=== PATIENT | female | born 1990 | race Caucasian/White ===

== ENCOUNTER 2016-09-15 19:22 | Emergency (ER) | payer OTHER ==
[2016-09-15 20:23] LABS: Hematocrit 40 % (35-47); Hemoglobin 13.5 g/dl (12.0-16.0); Mean Corpuscular HGB Conc 33 g/dl (31-36); Mean Corpuscular Hemoglobin 30 pg (27-31); Mean Corpuscular Volume 89 fL (80-97); Mean Platelet Volume 10 um3 (7.4-10.4); Red Blood Count 4.55 10^6/ul (4.0-5.4); Red Cell Distribution Width 12 % (10.5-15); White Blood Count 8.7 10^3/ul (3.5-10.8)
[2016-09-15 20:39] LABS: Albumin 4.6 g/dL (3.2-5.2); BUN/Creatinine Ratio 17.2 (8-20); Calcium 9.8 mg/dL (8.6-10.3); EGFR African American 164.3 (>60); EGFR Non-African American 127.7 (>60); Globulin 2.9 g/dL (2-4); Potassium 3.3 mmol/L (3.5-5.0); Total Bilirubin 1.2 mg/dL (0.2-1.0); Total Protein 7.5 g/dL (6.4-8.9)
[2016-09-15] MEDS ORDERED: Naproxen TAB* 375 MG PO ONE (21:14)
--- NOTE | 2016-09-15 21:14 | ED ---
Lower Extremity - HPI Summary HPI Summary: 26 female presents with complaints of left lower calf pain that began a month or two ago that worsened over the past week. Patient was seen in urgent care and sent here to rule out DVT. Patient did have tachycardia. States the pain gets better when she rests and worse when she is walking around and moving. Describes it to be a dull ache. Does admit to recent travel +6 hours in the car a week ago. Also admits to bed rest, stating she is lazy and lays down a lot. Denies cigarettes and control use. Patient took one ibuprofen a couple of days ago that did not seem to help her. Has not tried anything else. Denies redness, swelling, and warmth. Denies any open wounds. Hx of pericarditis from an illness back in 2013. She typically has chest pain since then that is intermittent and her norm. Denies any out of ordinary chest pain at this time. Denies SOB, abdominal pain, cough and fever/chills. Patient suffers from anxiety and is very anxious. Denies recent trauma/injury. - History of Current Complaint Chief Complaint: EDGeneral Stated Complaint: LEG PAIN-SENT FROM [facility] Time Seen by Provider: 09/15/16 19:48 Hx Obtained From: Patient Hx Last Menstrual Period: 09/07/16 Onset/Duration: Worse Since Severity Initially: Mild Severity Currently: Moderate Pain Intensity: 5 Pain Scale Used: 0-10 Numeric Timing: Constant Location: Is Discrete @ - left mid calf, posterior Character Of Pain: Dull, Aching, Spasmodic - at times Associated Signs And Symptoms: Positive: Negative Aggravating Factor(s): Standing, Ambulation, Movement Alleviating Factor(s): Rest - Allergies/Home Medications Allergies/Adverse Reactions: Allergies Allergy/AdvReac Type Severity Reaction Status Date / Time No Known Allergies Allergy Verified 09/15/16 18:33 PMH/Surg Hx/FS Hx/Imm Hx Endocrine/Hematology History: Denies: Hx Diabetes Cardiovascular History: Reports: Other Cardiovascular Problems/Disorders - hx pericarditis and intermittent angina since Denies: Hx Congestive Heart Failure, Hx Hypertension Respiratory History: Denies: Hx Asthma History: Denies: Hx Renal Disease - Surgical History Surgery Procedure, Year, and Place: APPENDECTOMY A CHILD - Immunization History Immunizations Up to Date: Yes Infectious Disease History: No Infectious Disease History: Denies: Traveled Outside the [place] in Last 30 Days - Family History Known Family History: Positive: Other - no FHX of DVT or clotting d/o - Social History Alcohol Use: None Substance Use Type: Reports: None Smoking Status (MU): Never Smoked Tobacco Review of Systems Constitutional: Negative Cardiovascular: Negative Respiratory: Negative Gastrointestinal: Negative Positive: Arthralgia, Myalgia - left calf Skin: Negative Neurological: Negative Positive: Anxious All Other Systems Reviewed And Are Negative: Yes Physical Exam Triage Information Reviewed: Yes Vital Signs On Initial Exam: Initial Vitals Temp Pulse Resp BP Pulse Ox 99.4 F 137 18 146/100 100 09/15/16 19:25 09/15/16 19:25 09/15/16 19:25 09/15/16 19:25 09/15/16 19:25 tachycardia noted and elevated BP. monitored and both went down into low 100's throughout stay in ED. Patient is anxious and suffers from anxiety. Compared to previous visits and similar. Vital Signs Reviewed: Yes Appearance: Positive: Well-Appearing, No Pain Distress, Well-Nourished Skin: Positive: Warm, Skin Color Reflects Adequate Perfusion, Dry, Other - no edema, calves measured same circumferance. Negative: Cyanosis @, Diaphoretic, Erythema @ Head/Face: Positive: Normal Head/Face Inspection Eyes: Positive: Normal, Conjunctiva Clear ENT: Positive: Normal ENT inspection, Hearing grossly normal Neck: Positive: Supple, Nontender, No Lymphadenopathy Respiratory/Lung Sounds: Positive: Clear to Auscultation, Breath Sounds Present. Negative: Decreased Breath Sounds, Rales, Stridor, Wheezes, Unable to speak in full sentences Cardiovascular: Positive: Normal, RRR, Pulses are Symmetrical in both Upper and Lower Extremities, Tachycardia. Negative: Leg Edema Left, Leg Edema Right Abdomen Description: Positive: Nontender, No Organomegaly, Soft Bowel Sounds: Positive: Present Musculoskeletal: Positive: Normal, Strength/ROM Intact, Pain @ - on palpation of left mid posterior calf at gastrocnemius muscle, Tamara Sign Left. Negative: Tamara Sign Right, Edema Left, Edema Right Neurological: Positive: Normal, Sensory/Motor Intact, Alert, Oriented to Person Place, Time Psychiatric: Positive: Normal - [place] Coma Scale Coma Scale Total: 15 Diagnostics - Vital Signs Vital Signs Temp Pulse Resp BP Pulse Ox 09/15/16 21:00 114 12 131/87 99 09/15/16 20:33 109 16 128/88 98 09/15/16 20:00 117 20 140/91 100 09/15/16 19:56 133 10 99 09/15/16 19:54 146/90 09/15/16 19:47 99.3 F 132 10 146/90 100 09/15/16 19:25 99.4 F 137 18 146/100 100 - Laboratory Lab Results: Lab Results 09/15/16 09/15/16 09/15/16 Range/Units 20:10 20:10 20:10 WBC 8.7 (3.5-10.8) 10^3/ul RBC 4.55 (4.0-5.4) 10^6/ul Hgb 13.5 (12.0-16.0) g/dl Hct 40 (35-47) % MCV 89 (80-97) fL MCH 30 (27-31) pg MCHC 33 (31-36) g/dl RDW 12 (10.5-15) % Plt Count 223 (150-450) 10^3/ul MPV 10 (7.4-10.4) um3 Neut % (Auto) 77.1 (38-83) % Lymph % (Auto) 18.7 L (25-47) % Bucks % (Auto) 3.6 (1-9) % Eos % (Auto) 0 (0-6) % Baso % (Auto) 0.6 (0-2) % Absolute Neuts (auto) 6.7 (1.5-7.7) 10^3/ul Absolute Lymphs (auto) 1.6 (1.0-4.8) 10^3/ul Absolute Monos (auto) 0.3 (0-0.8) 10^3/ul Absolute Eos (auto) 0 (0-0.6) 10^3/ul Absolute Basos (auto) 0.1 (0-0.2) 10^3/ul Absolute Nucleated RBC 0 10^3/ul Nucleated RBC % 0 D-Dimer, Quantitative < 200 (Less Than 230) ng/mL Sodium 136 (133-145) mmol/L Potassium 3.3 L (3.5-5.0) mmol/L Chloride 103 (101-111) mmol/L Carbon Dioxide 21 L (22-32) mmol/L Anion Gap 12 H (2-11) mmol/L BUN 10 (6-24) mg/dL Creatinine 0.58 (0.51-0.95) mg/dL Est GFR ( Amer) 164.3 (>60) Est GFR (Non-Af Amer) 127.7 (>60) BUN/Creatinine Ratio 17.2 (8-20) Glucose 108 H (70-100) mg/dL Lactic Acid (0.5-2.0) mmol/L Calcium 9.8 (8.6-10.3) mg/dL Total Bilirubin 1.20 H (0.2-1.0) mg/dL AST 16 (13-39) U/L ALT 19 (7-52) U/L Alkaline Phosphatase 52 (34-104) U/L Troponin I 0.00 (<0.04) ng/mL Total Protein 7.5 (6.4-8.9) g/dL Albumin 4.6 (3.2-5.2) g/dL Globulin 2.9 (2-4) g/dL Albumin/Globulin Ratio 1.6 (1-3) /01/24 Range/Units 20:10 WBC (3.5-10.8) 10^3/ul RBC (4.0-5.4) 10^6/ul Hgb (12.0-16.0) g/dl Hct (35-47) % MCV (80-97) fL MCH (27-31) pg MCHC (31-36) g/dl RDW (10.5-15) % Plt Count (150-450) 10^3/ul MPV (7.4-10.4) um3 Neut % (Auto) (38-83) % Lymph % (Auto) (25-47) % Bucks % (Auto) (1-9) % Eos % (Auto) (0-6) % Baso % (Auto) (0-2) % Absolute Neuts (auto) (1.5-7.7) 10^3/ul Absolute Lymphs (auto) (1.0-4.8) 10^3/ul Absolute Monos (auto) (0-0.8) 10^3/ul Absolute Eos (auto) (0-0.6) 10^3/ul Absolute Basos (auto) (0-0.2) 10^3/ul Absolute Nucleated RBC 10^3/ul Nucleated RBC % D-Dimer, Quantitative (Less Than 230) ng/mL Sodium (133-145) mmol/L Potassium (3.5-5.0) mmol/L Chloride (101-111) mmol/L Carbon Dioxide (22-32) mmol/L Anion Gap (2-11) mmol/L BUN (6-24) mg/dL Creatinine (0.51-0.95) mg/dL Est GFR ( Amer) (>60) Est GFR (Non-Af Amer) (>60) BUN/Creatinine Ratio (8-20) Glucose (70-100) mg/dL Lactic Acid 1.1 (0.5-2.0) mmol/L Calcium (8.6-10.3) mg/dL Total Bilirubin (0.2-1.0) mg/dL AST (13-39) U/L ALT (7-52) U/L Alkaline Phosphatase (34-104) U/L Troponin I (<0.04) ng/mL Total Protein (6.4-8.9) g/dL Albumin (3.2-5.2) g/dL Globulin (2-4) g/dL Albumin/Globulin Ratio (1-3) Result Diagrams: 09/15/16 20:10 09/15/16 20:10 Lab Statement: Any lab studies that have been ordered have been reviewed, and results considered in the medical decision making process. - Ultrasound No standard instances Ultrasound Interpretation: No Acute Changes - No evidence for LEFT lower extremity deep venous thrombosis. Ultrasound Interpretation Completed By: Radiologist - EKG EKG Cardiac Rate: NL EKG Rhythm: Sinus Tachycardia ST Segment: Normal Ectopy: None EKG Comparison: No Significant Change Lower Extremity Course/Dx - Course Course Of Treatment: labs, d-dimer, sed rate and CRP obtained all unremarkable and negative. EKG obtained and negative- sinus tachycardia. U/S lower left extremity ordered and negative. due to patients PE findings, HPI and lab results do not suspect DVT or PE at this time. Patient educated on these symptoms and worsening signs and symptoms to watch out for. Given naproxen while in ED. Told to continue naproxen at home, rest and heat. Also given flexeril to take at bedtime, spasms. Once improving start stretching. Follow up with pcp to ensure proper healing. - Diagnoses Differential Diagnosis/HQI/PQRI: Positive: Arthritis, DVT, Sprain, Strain, Tendonitis, Other - PE Provider Diagnoses: Pain of left calf Discharge - Discharge Plan Condition: Stable Disposition: HOME Prescriptions: Cyclobenzaprine TAB* [Flexeril 10 MG TAB*] 10 mg PO BEDTIME #10 tab Patient Education Materials: Muscle Strain (ED) Referrals: Corey Handley MD [Primary Care Provider] - Additional Instructions: Take Ibuprofen (600mg) or Aleve (2 pills) every 6-8 hours with food for the next 3-5 days to help with inflammation and pain. Take prescribed muscle relaxer at bedtime. You may split in half if it makes you too drowsy. Do not drive while taking this medication. Rest your calf. Apply warm compresses multiple times daily 20 minutes on and 20 minutes off. Try stretching your calf after 3 days of rest slowly. If your symptoms persist or do not improve in the next 5-10 days or new symptoms develop such as worsening pain, redness, swelling or difficulty breathing please seek medical attention immediately. Follow up with your primary care provider in the next 7 days.
--- NOTE | 2016-09-15 21:18 | RAD ---
INDICATION: LEFT calf pain for months more intense in the last 2 days. COMPARISON: None. TECHNIQUE: Farrell scale, color Doppler, and spectral analysis of the deep veins of the LEFT lower extremity. Vessel compression, phasicity, and augmentation assessed. REPORT: The LEFT common femoral, great saphenous, profunda femoral, femoral, popliteal, peroneal, and posterior tibial veins are patent. Patency of the RIGHT common femoral vein documented. IMPRESSION: No evidence for LEFT lower extremity deep venous thrombosis.
[2016-09-15] MEDS ORDERED: Cyclobenzaprine TAB* 10 MG PO ONE (21:51)
[2016-09-15 22:13] VITALS: BP 130/91
[2016-09-15 22:39] LABS: C Reactive Protein 1.66 mg/L (< 5.00)
[2016-09-15 23:06] LABS: Erythrocyte Sed Rate 8 mm/Hr (0-14)
== END 2016-09-15 22:10 | disposition home or self-care (01) ==
LOC: ED 19:22
DX: M79.662 Pain in left lower leg (principal)
CPT/HCPCS: 36415; 80053; 83605; 84484; 85025; 85379; 85652; 86140; 93005; 99283; A9270-GY

== ENCOUNTER 2016-11-18 12:30 | Observation (INO) | payer OTHER ==
[2016-11-18] MEDS ORDERED: Aspirin Low Dose CHEW TAB* 81 MG PO ONE (13:55)
[2016-11-18] MEDS ORDERED: NS 0.9% 1000 ML* 2,000 ML IV ONE (13:55)
[2016-11-18 14:21] LABS: Hematocrit 42 % (35-47); Hemoglobin 13.8 g/dl (12.0-16.0); Mean Corpuscular HGB Conc 33 g/dl (31-36); Mean Corpuscular Hemoglobin 30 pg (27-31); Mean Corpuscular Volume 91 fL (80-97); Mean Platelet Volume 10 um3 (7.4-10.4); Red Blood Count 4.63 10^6/ul (4.0-5.4); Red Cell Distribution Width 13 % (10.5-15); White Blood Count 6.8 10^3/ul (3.5-10.8)
[2016-11-18 14:26] LABS: Urine Bilirubin Negative (Negative); Urine Glucose Negative (Negative); Urine Nitrite Negative (Negative)
[2016-11-18 14:40] LABS: ALT 10 U/L (7-52); AST 13 U/L (13-39); Albumin 4.6 g/dL (3.2-5.2); Alkaline Phosphatase 46 U/L (34-104); Anion Gap 10 mmol/L (2-11); BUN/Creatinine Ratio 20.3 (8-20); Blood Urea Nitrogen 12 mg/dL (6-24); C Reactive Protein < 1.00 mg/L (< 5.00); CO2 Carbon Dioxide 22 mmol/L (22-32); Calcium 9.5 mg/dL (8.6-10.3); Chloride 106 mmol/L (101-111); Creatine Kinase 38 U/L (10-223); EGFR Non-African American 125.2 (>60); Globulin 2.7 g/dL (2-4); Glucose 100 mg/dL (70-100); Lipase 16 U/L (11.0-82.0); Potassium 3.4 mmol/L (3.5-5.0); Sodium 138 mmol/L (133-145); Total Protein 7.3 g/dL (6.4-8.9)
[2016-11-18] MEDS ORDERED: Iohexol 350* (CONTRAST) 500 ML MDV IV ONE (14:43)
[2016-11-18 14:54] LABS: TSH (Thyroid Stimulating Horm) 0.76 mcIU/mL (0.34-5.60)
--- NOTE | 2016-11-18 15:04 | RAD ---
HISTORY: Left calf tenderness COMPARISONS: None relevant TECHNIQUE: Multiple transverse and longitudinal ultrasound images were obtained of the left lower extremity from the level of the common femoral vein inferiorly through to the infrapopliteal veins using grayscale, color Doppler, and spectral Doppler imaging with and without compression and with augmentation. Comparison images were obtained of the contralateral common femoral vein. FINDINGS: VEINS: The venous system of the left lower extremity is compressible throughout its course, with normal flow on color Doppler imaging and normal response to augmentation on spectral Doppler imaging. SOFT TISSUES: Unremarkable. OTHER FINDINGS: None. IMPRESSION: NO LEFT LOWER EXTREMITY DEEP VEIN THROMBOSIS
--- NOTE | 2016-11-18 15:56 | RAD ---
HISTORY: Chest pain, shortness of breath, tachycardia COMPARISONS: January 25, 2013 TECHNIQUE: Multiple contiguous axial CT scans of the chest were obtained after the administration of nonionic intravenous contrast, timed to the pulmonary arterial phase of contrast enhancement.. Coronal and sagittal multiplanar reformations are also submitted for review. FINDINGS: NECK AND THYROID: The lower neck and thyroid are unremarkable. CHEST WALL: There is no lower cervical, axillary, or supraclavicular lymphadenopathy by size criteria. HEART AND PERICARDIUM: The heart is unremarkable. AORTA AND PULMONARY VASCULATURE: There is no pulmonary arterial filling defect to suggest pulmonary embolism. There is no linear filling defect within the aorta to suggest aortic dissection. MEDIASTINUM: There is no mediastinal lymphadenopathy by size criteria. HERB: There is no hilar lymphadenopathy by size criteria. AIRWAY AND ESOPHAGUS: The airway is unremarkable, without endobronchial filling defect. The esophagus is grossly normal. LUNG PARENCHYMA: The lungs are clear. PLEURA: No pleural abnormalities are noted. UPPER ABDOMEN: The upper abdomen is unremarkable. BONES AND SOFT TISSUES: No bone or soft tissue abnormalities are noted. OTHER: None. IMPRESSION: NO PULMONARY ARTERIAL FILLING DEFECT TO SUGGEST PULMONARY EMBOLISM
--- NOTE | 2016-11-18 16:30 | RAD ---
Indication: Elevated bilirubin. Real-time sonography of the right upper quadrant was performed. Liver is normal in size. No focal lesions or intrahepatic ductal dilatation is noted. The common duct measures up to 2.2 mm. The gallbladder demonstrates no gallstones, pericholecystic fluid or wall thickening. Pancreas demonstrates no mass or pancreatic duct dilatation. The right kidney measures 11.5 x 3.6 x 4.4 cm without hydronephrosis. Aorta and inferior vena cava cava are unremarkable. IMPRESSION: No evidence of cholelithiasis or biliary duct dilatation is noted.
--- NOTE | 2016-11-18 18:27 | ECHO ---
Patient: ALBERT VELASQUEZ [facility] Rec#: [id number] : 1990 Date: 11/18/2016 Age: 26y Height: 162.56 cm / 64.0 in Weight: 53.07 kg / 117.0 lbs Sex: F BSA: 1.56 Room#: ED 3 Admit Date#: 11/18/2016 Type: Outpatient Referring: Nasim Salcedo MD Reading: Merrill Abreu MD [place] Laborer: Johanne Marinelli,KRISSYCS,RDMS CC: Corey Handley MD Transthoracic Echocardiogram Indication: CP BP: 121/88 HR: 103 Rhythm: Tachycardia Findings History: Pericarditis Technical Comments: The study quality is fair. Completed 1535 Left Ventricle: The left ventricular chamber size is normal. There is no left ventricular hypertrophy. The estimated ejection fraction is 60-65%. The assessment of diastolic function is non-diagnostic. Left Atrium: The left atrial chamber size is normal. Right Ventricle: The right ventricular chamber size and systolic function are within normal limits. Right Atrium: The right atrial cavity size is normal. Aortic Valve: The aortic valve is trileaflet. Systolic excursion of the aortic valve is normal. There is no evidence of aortic regurgitation. There is no evidence of aortic stenosis. Mitral Valve: The mitral valve leaflets appear normal. There is no evidence of mitral regurgitation. There is no evidence of mitral stenosis. Tricuspid Valve: The tricuspid valve leaflets are normal. There is trace tricuspid regurgitation. Pulmonic Valve: The pulmonic valve appears normal. There is a trace pulmonic regurgitation. Pericardium: There is no significant pericardial effusion. Aorta: The ascending aorta is not well visualized. There is no dilatation of the aortic arch. The aortic root is normal in size. Pulmonary Artery: The main pulmonary artery appears normal. Venous: The inferior vena cava appears normal in size. There is a greater than 50% respiratory change in the inferior vena cava dimension. Conclusions Undetermined rhythm; nsr at times but poor baseline limits interpretation. Consider periods of aflutter or afib. The estimated ejection fraction is 60-65%. No significant valve issues. There is no significant pericardial effusion. reviewed with . Measurements Name Value Normal Range RVIDd (AP) 2D 2 cm (0.9 - 2.6) RVDdMajor (2D) 3 cm (2.2 - 4.4) RAd ISD 4CH 3.9 cm (3.4 - 4.9) RA (A4C)W 3.3 cm (2.9 - 4.6) IVSd (2D) 0.7 cm (0.6 - 1) LVPWd (2D) 0.8 cm (0.6 - 1) LVIDd (2D) 3.8 cm (3.6 - 5.4) LVIDs (2D) 2.7 cm - LV FS (2D) 29 % (25 - 45) Aortic Annulus 2 cm (1.4 - 2.6) Ao root diameter (2D) 2.6 cm (2.1 - 3.5) Aortic arch 2.3 cm (1.8 - 3.4) LA dimension (AP) 2D 3.1 cm (2.3 - 3.8) LAd ISD 4CH 4.3 cm (2.9 - 5.3) LA ISD 4CH W 3.5 cm (2.5 - 4.5) Name Value Normal Range LA ESV SP 4CH (A/L) 33.22 ml - LA ESV SP 2CH (A/L) 29.48 ml - LA ESV BP (A/L) 32.75 ml - LA ESV BP (A/L) index 21 ml/m2 - LA ESV SP 4CH (MOD) 31.83 ml - LA ESV SP 2CH (MOD) 26.38 ml - Name Value Normal Range MV E-wave Vmax 1.2 m/sec - MV deceleration time 65 msec - MV A-wave Vmax 1 m/sec - MV E:A ratio 1.2 ratio - LV septal e' Vmax 0.16 m/sec - LV lateral e' Vmax 0.21 m/sec - LV E:e' septal ratio 7.5 ratio - LV E:e' lateral ratio 5.7 ratio - Name Value Normal Range AV Vmax 1.31 m/sec - AV VTI 24.5 cm - AV peak gradient 7 mmHg - AV mean gradient 3.4 mmHg - LVOT Vmax 0.9 m/sec - LVOT VTI 15 cm - LVOT peak gradient 3.4 mmHg - LVOT mean gradient 1.4 mmHg - UTE Vmax 1.5 m/sec - Name Value Normal Range RAP 8 mmHg - IVC diameter 1.7 cm - Name Value Normal Range PV Vmax 1 m/sec - PV peak gradient 4 mmHg -
[2016-11-18] MEDS ORDERED: Potassium Chlor TAB* 20 MEQ TAB.ER PO ONE (19:21)
[2016-11-18] MEDS ORDERED: Ibuprofen TAB* 200 MG PO PRN (19:24)
[2016-11-18] MEDS ORDERED: Ondansetron INJ* 2 MG/ML VIAL IV PRN (19:25)
[2016-11-18] MEDS ORDERED: LORazepam TAB(*) 0.5 MG PO PRN (19:26)
--- NOTE | 2016-11-18 19:44 | ED ---
Thao Walker Edward, scribed for Nasim Salcedo MD on 11/18/16 at 1333 . Palpitations / Dysrhythmia - HPI Summary HPI Summary: 26 y/o female presents to ED c/o palpitations and dysrhythmia characterized as increased HR and skipped beats. The patient states that the palpitations have induced CP on her left side that started five days ago and has gotten progressively worse. The pain was rated at a 8/10 at its worst and characterized as a tightness. The CP is at a 5/10 now. The pain is aggravated by walking around and deep breaths; it is alleviated with rest. Associated sx: SOB, nausea, LLE and LUE pain. Denies any rashes. PMHx pericarditis 2013 and UTIs. Patient is currently being treated for UTI with Keflex. Associated sx of UTI: flank pain, urine with foul odor, diarrhea, and chronic constipation. Patient states her LNMP (2 weeks ago) was not normal - described as intermittent spotting. NKDA. - History of Current Complaint Chief Complaint: EDDysrhythmPalp Time Seen by Provider: 11/18/16 13:32 Hx Obtained From: Patient Onset/Duration: Sudden Onset, Lasting Days - Started 5 days ago Severity Initially: Severe Severity Currently: Moderate Character: Fast, Skipped Beats Aggravating: Exertion - and Deep breaths Alleviating: Rest Associated Signs & Symptoms: Chest Pain, Shortness of Breath, Nausea - Allergy/Home Medications Allergies/Adverse Reactions: Allergies Allergy/AdvReac Type Severity Reaction Status Date / Time No Known Allergies Allergy Verified 11/18/16 12:58 Home Medications: Home Medications Cephalexin CAP* [Keflex 500 CAP*] 500 mg PO QID 11/18/16 [History Confirmed 04/25] Colchicine* [Colcrys*] 0.6 mg PO BID 11/18/16 [History Confirmed 11/18/16] PMH/Surg Hx/FS Hx/Imm Hx Previously Healthy: No Endocrine/Hematology History: Denies: Hx Diabetes Cardiovascular History: Reports: Other Cardiovascular Problems/Disorders - hx pericarditis and intermittent angina since Denies: Hx Congestive Heart Failure, Hx Hypertension Respiratory History: Denies: Hx Asthma History: Reports: Other Problems/Disorders - UTIs Denies: Hx Renal Disease - Surgical History Surgery Procedure, Year, and Place: APPENDECTOMY A CHILD Infectious Disease History: No Infectious Disease History: Denies: Traveled Outside the [place] in Last 30 Days - Family History Known Family History: Positive: Other - no FHX of DVT or clotting d/o - Social History Alcohol Use: None Substance Use Type: Reports: None Smoking Status (MU): Never Smoked Tobacco Review of Systems Constitutional: Negative Eyes: Negative ENT: Negative Positive: Palpitations - Fast, skipped beats, Chest Pain Positive: Shortness Of Breath Positive: Diarrhea, Nausea, Other - Chronic constipation Positive: flank pain, other - Foul smelling odor Positive: Myalgia - LLE and LUE pain Skin: Negative Neurological: Negative Psychological: Normal All Other Systems Reviewed And Are Negative: Yes Physical Exam Triage Information Reviewed: Yes Vital Signs On Initial Exam: Initial Vitals Temp Pulse Resp BP Pulse Ox 98.1 F 146 24 131/95 100 11/18/16 12:35 11/18/16 12:35 11/18/16 12:35 11/18/16 12:35 11/18/16 12:35 Vital Signs Reviewed: Yes Appearance: Positive: Well-Appearing, No Pain Distress, Well-Nourished Skin: Positive: Warm, Skin Color Reflects Adequate Perfusion, Dry, Other - No rash. Head/Face: Positive: Normal Head/Face Inspection Eyes: Positive: Normal, EOMI, CONNER ENT: Positive: Normal ENT inspection Neck: Positive: Supple, Nontender Respiratory/Lung Sounds: Positive: Clear to Auscultation, Breath Sounds Present Cardiovascular: Positive: Tachycardia - Mild Abdomen Description: Positive: Nontender, Soft Bowel Sounds: Positive: Present Musculoskeletal: Positive: Strength/ROM Intact, Other - Mild tenderness in the L calf Neurological: Positive: Normal, Sensory/Motor Intact, Alert, Oriented to Person Place, Time Psychiatric: Positive: Affect/Mood Appropriate - [place] Coma Scale Coma Scale Total: 15 Diagnostics - Vital Signs Vital Signs Temp Pulse Resp BP Pulse Ox 11/18/16 13:00 107 123/81 99 11/18/16 12:57 108 14 123/87 100 11/18/16 12:47 132 98 11/18/16 12:46 152/95 11/18/16 12:35 98.1 F 146 24 131/95 100 - Laboratory Lab Results: Lab Results 11/18/16 11/18/16 11/18/16 Range/Units 13:07 13:07 13:07 WBC 6.8 (3.5-10.8) 10^3/ul RBC 4.63 (4.0-5.4) 10^6/ul Hgb 13.8 (12.0-16.0) g/dl Hct 42 (35-47) % MCV 91 (80-97) fL MCH 30 (27-31) pg MCHC 33 (31-36) g/dl RDW 13 (10.5-15) % Plt Count 240 (150-450) 10^3/ul MPV 10 (7.4-10.4) um3 Neut % (Auto) 79.1 (38-83) % Lymph % (Auto) 15.4 L (25-47) % Barron % (Auto) 4.8 (1-9) % Eos % (Auto) 0.1 (0-6) % Baso % (Auto) 0.6 (0-2) % Absolute Neuts (auto) 5.4 (1.5-7.7) 10^3/ul Absolute Lymphs (auto) 1.0 (1.0-4.8) 10^3/ul Absolute Monos (auto) 0.3 (0-0.8) 10^3/ul Absolute Eos (auto) 0 (0-0.6) 10^3/ul Absolute Basos (auto) 0 (0-0.2) 10^3/ul Absolute Nucleated RBC 0 10^3/ul Nucleated RBC % 0 INR (Anticoag Therapy) 1.10 (0.89-1.11) APTT 35.2 (26.0-36.3) seconds Sodium (133-145) mmol/L Potassium (3.5-5.0) mmol/L Chloride (101-111) mmol/L Carbon Dioxide (22-32) mmol/L Anion Gap (2-11) mmol/L BUN (6-24) mg/dL Creatinine (0.51-0.95) mg/dL Est GFR ( Amer) (>60) Est GFR (Non-Af Amer) (>60) BUN/Creatinine Ratio (8-20) Glucose (70-100) mg/dL Lactic Acid (0.5-2.0) mmol/L Calcium (8.6-10.3) mg/dL Magnesium (1.9-2.7) mg/dL Total Bilirubin (0.2-1.0) mg/dL AST (13-39) U/L ALT (7-52) U/L Alkaline Phosphatase (34-104) U/L Total Creatine Kinase (10-223) U/L CK-MB (CK-2) (0.6-6.3) ng/mL Troponin I (<0.04) ng/mL C-Reactive Protein (< 5.00) mg/L B-Natriuretic Peptide ( - 100) pg/mL Total Protein (6.4-8.9) g/dL Albumin (3.2-5.2) g/dL Globulin (2-4) g/dL Albumin/Globulin Ratio (1-3) Lipase (11.0-82.0) U/L TSH (0.34-5.60) mcIU/mL Beta HCG, Quant mIU/mL Urine Color Yellow Urine Appearance Clear Urine pH 6.0 (5-9) Ur Specific [place] 1.008 L (1.010-1.030) Urine Protein Negative (Negative) Urine Ketones 1+ H (Negative) Urine Blood Negative (Negative) Urine Nitrate Negative (Negative) Urine Bilirubin Negative (Negative) Urine Urobilinogen Negative (Negative) Ur Leukocyte Esterase Negative (Negative) Urine Glucose Negative (Negative) 11/18/16 11/18/16 11/18/16 Range/Units 13:07 13:07 13:07 WBC (3.5-10.8) 10^3/ul RBC (4.0-5.4) 10^6/ul Hgb (12.0-16.0) g/dl Hct (35-47) % MCV (80-97) fL MCH (27-31) pg MCHC (31-36) g/dl RDW (10.5-15) % Plt Count (150-450) 10^3/ul MPV (7.4-10.4) um3 Neut % (Auto) (38-83) % Lymph % (Auto) (25-47) % Barron % (Auto) (1-9) % Eos % (Auto) (0-6) % Baso % (Auto) (0-2) % Absolute Neuts (auto) (1.5-7.7) 10^3/ul Absolute Lymphs (auto) (1.0-4.8) 10^3/ul Absolute Monos (auto) (0-0.8) 10^3/ul Absolute Eos (auto) (0-0.6) 10^3/ul Absolute Basos (auto) (0-0.2) 10^3/ul Absolute Nucleated RBC 10^3/ul Nucleated RBC % INR (Anticoag Therapy) (0.89-1.11) APTT (26.0-36.3) seconds Sodium 138 (133-145) mmol/L Potassium 3.4 L (3.5-5.0) mmol/L Chloride 106 (101-111) mmol/L Carbon Dioxide 22 (22-32) mmol/L Anion Gap 10 (2-11) mmol/L BUN 12 (6-24) mg/dL Creatinine 0.59 (0.51-0.95) mg/dL Est GFR ( Amer) 161.0 (>60) Est GFR (Non-Af Amer) 125.2 (>60) BUN/Creatinine Ratio 20.3 H (8-20) Glucose 100 (70-100) mg/dL Lactic Acid 1.0 (0.5-2.0) mmol/L Calcium 9.5 (8.6-10.3) mg/dL Magnesium 2.0 (1.9-2.7) mg/dL Total Bilirubin 2.10 H (0.2-1.0) mg/dL AST 13 (13-39) U/L ALT 10 (7-52) U/L Alkaline Phosphatase 46 (34-104) U/L Total Creatine Kinase 38 (10-223) U/L CK-MB (CK-2) 0.5 L (0.6-6.3) ng/mL Troponin I 0.00 (<0.04) ng/mL C-Reactive Protein < 1.00 (< 5.00) mg/L B-Natriuretic Peptide 15 ( - 100) pg/mL Total Protein 7.3 (6.4-8.9) g/dL Albumin 4.6 (3.2-5.2) g/dL Globulin 2.7 (2-4) g/dL Albumin/Globulin Ratio 1.7 (1-3) Lipase 16 (11.0-82.0) U/L TSH 0.76 (0.34-5.60) mcIU/mL Beta HCG, Quant < 0.60 mIU/mL Urine Color Urine Appearance Urine pH (5-9) Ur Specific [place] (1.010-1.030) Urine Protein (Negative) Urine Ketones (Negative) Urine Blood (Negative) Urine Nitrate (Negative) Urine Bilirubin (Negative) Urine Urobilinogen (Negative) Ur Leukocyte Esterase (Negative) Urine Glucose (Negative) Result Diagrams: 11/18/16 13:07 11/18/16 13:07 Lab Statement: Any lab studies that have been ordered have been reviewed, and results considered in the medical decision making process. - Radiology [place] Doppler Study Xray Interpretation: No Acute Changes - NO LEFT LOWER EXTREMITY DEEP VEIN THROMBOSIS Radiology Interpretation Completed By: Radiologist - CT CHEST/THORAX CTA CT Interpretation: No Acute Changes - NO PULMONARY ARTERIAL FILLING DEFECT TO SUGGEST PULMONARY EMBOLISM CT Interpretation Completed By: Radiologist - Ultrasound No standard instances Ultrasound Interpretation: No Acute Changes - GALLBLADDER US - No evidence of cholelithiasis or biliary duct dilatation is noted. Ultrasound Interpretation Completed By: Radiologist - EKG 1 EKG Rhythm: Sinus Tachycardia - @ 112 bpm Ectopy: None EKG Interpretation: 12:54 - Minimal ST depression Course/Dx - Course Assessment/Plan: Discussed patient care with Dr. Jem Durán (Hospitalist) @ 18:35. NO CRITICAL CARE TIME. DISCUSSED RESULTS WITH PATIENT/FAMILY AND DR MOODY, CARDIOLOGY. PATIENT AMBULATED IN ED; HR INCREASED TO 149 AND SHE HAD CHEST PAIN. ADMIT HOSPITALIST STABLE. - Diagnoses Provider Diagnoses: Chest pain, Tachycardia Discharge - Discharge Plan Condition: Stable Disposition: ADMITTED TO [facility] Referrals: Corey Handley MD [Primary Care Provider] - The documentation as recorded by the Thao valladares Edward accurately reflects the service I personally performed and the decisions made by me, Nasim Salcedo MD.
[2016-11-18] MEDS: Cephalexin CAP* 500 MG PO SCH (21:36)
[2016-11-18] MEDS: Ibuprofen TAB* 600 MG PO SCH (21:36)
--- NOTE | 2016-11-18 23:58 | HP ---
CC: Dr. Handley; Dr. Hale * ADMISSION HISTORY AND PHYSICAL: DATE OF ADMISSION: 11/18/16 PRIMARY CARE PROVIDER: Dr. Handley. HEALTHCARE PROXY: Her father. CODE STATUS: Full. SOURCE OF INFORMATION: History obtained from interview with the patient and her father, as well as discussion with the ER physician. RELIABILITY: Good. CHIEF COMPLAINT: Chest pain and palpitations. HISTORY OF PRESENT ILLNESS: This is a 26-year-old female with past medical history of pericarditis in 2012, treated at this hospital, recurrent urinary tract infections, has been in her usual state of health until 5 days prior to this presentation on Wednesday evening, started developing palpitations with a sensation that her heart was racing. She was at work and could do nothing to alleviate the symptoms, but lied down when she got home and symptoms improved. Next day, again she felt like her heart was racing except that it was worse, thought about proceeding to the hospital in the hope that it would get better. She admitted that the palpitations were associated with lightheadedness and nausea with decreased appetite and intake over the last several days, although no emesis. The patient notes since that time over the last 4 days, she developed left-sided chest, arm and leg pain, worse with any exertion. Two days prior to presentation, she did try to move less with some relief; however, ultimately palpitations and pain did not improve, and so she presented to her PCP a day prior to presentation. Dr. Handley was not present; however, she saw Dr. Hale in the office, who reportedly performed a chest x-ray, EKG and started her on Keflex for a suspected urinary tract infection and colchicine. The patient took a dose of colchicine developed diarrhea. The patient was additionally prescribed atenolol; however, had not yet taken any doses. The patient reports that previous urinary tract infections have been associated with malodorous urine as well as suprapubic tenderness. She has noticed no dysuria; however, has noticed malodorous urine for many months, not associated with frequency or urgency. She denies any fevers, no subjective chills the night prior to presentation without any sweats. She notes that the pain that she has been experiencing now is dissimilar from the pericarditis she experienced in 2012 and that the pericarditis was a stabbing, pleuritic pain, compared to this pain that she is experiencing now in the left side of her body. PAST MEDICAL HISTORY: Pericarditis in 2013, chronic constipation, moves her bowels every 7 days, recurrent urinary tract infections, history of appendectomy , and anxiety. MEDICATIONS: 1. Keflex 500 mg 4 times a day since yesterday. 2. Colchicine 0.6 mg twice daily. She took one dose. ALLERGIES: No known drug allergies. FAMILY HISTORY: Significant for 2 grandfathers with DC's and the grandmother with an DC as well. SOCIAL HISTORY: No tobacco, alcohol or illicits. History was elicited in front of her father. 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 She notes she is quite active. The most activities she typically outside of work, will be walking around the mall to all the stores after receiving her pay check, which she performed without chest pain or shortness of breath. REVIEW OF SYSTEMS: As per HPI. Otherwise, all other systems are negative. PHYSICAL EXAMINATION GENERAL: Well-appearing female, lying flat in bed, interactive, pleasant, in no apparent distress. VITAL SIGNS: Vitals in the emergency room, blood pressure 131/94, heart rate is 105 when seen by this author, respiratory rate is 16, T-max 98.1, 99% on room air.. HEENT: Oropharynx is clear. She has moist mucous membranes. Sclerae are anicteric. NECK: She has non-elevated JVD. No cervical or supraclavicular lymphadenopathy. LUNGS: Clear to auscultation bilaterally. HEART: She has a tachycardic regular heart rate with no murmurs, rubs, or gallops. Several times, I could not elicit a rub. ABDOMEN: Soft, nontender, nondistended. No suprapubic tenderness. No costovertebral angle tenderness. EXTREMITIES: Warm, well perfused with good capillary refill. No clubbing, cyanosis, or edema. NEUROLOGIC: She is alert and oriented x3. Her cranial nerves are intact. DIAGNOSTIC STUDIES/LAB DATA: Pertinent laboratory data significant for potassium 3.4, total bilirubin 2.1, troponin I of 0.00, CK-MB 0.5, lipase 16, white blood cell count 6.8, CRP is less than 1. Urine with 1+ ketones. EKG is sinus tachycardia, ventricular rate 112, normal axis, intervals preserved , good R-wave progression. There is ST depressions in V3, V4 and minimally depressed in lead 1, T-wave inversion in V2, similar EKG in 2013 on presentation. Pertinent imaging: Transthoracic echocardiogram, impression: Undetermined rhythm, normal sinus rhythm at times with poor baseline limits and interpretation. Consider periods of Aflutter or AFib. Estimated EF of 60% to 65 %. No significant valvular issues. No significant pericardial effusion. CTA, no evidence of pulmonary embolism. ASSESSMENT AND PLAN: This is a 26-year-old female with past medical history of pericarditis in 2013, presenting with episodes of palpitations, associated with chest pain. 1. Chest pain. At this time, I have low suspicion for acute coronary syndrome , given patient's lack of clinical risk factors and first negative troponin. EKG does have subtle evidence of ischemia; however, the EKG is consistent with her presentation of pericarditis in 2013. We will repeat another troponin at this time, it is approximately 6 hours status post presentation and if it remains nominal, I think ischemia is less likely. However, I do note that her pain has been worse with ambulation. For this reason, I will make her n.p.o. after midnight, will monitor EKG, to be rechecked in the morning as well as repeat troponins and her rhythm on telemetry. She received a full dose aspirin in the emergency room. I have not continued aspirin for the morning. Pericarditis is certainly a possibility given her past history. It is unclear if she received colchicine at the time of diagnosis. For now, I will place her on standing Motrin with omeprazole for GI prophylaxis. 2. Urinary tract infection based on history. She has already received some therapy and now urinalysis would be less accurate. Continue Keflex for 7-day course. 3. Tachycardia. There is some concern raised for atrial fibrillation or atrial flutter based on the transthoracic echocardiogram during its acquisition as indicated by Dr. Abreu. Admit to telemetry and monitor. No anticoagulation for this time. 4. Anxiety. The patient is on no medications at home; however, notes that she has had difficulty sleeping secondary to fear of dying from this condition. We will hospitalize. I provided her with 0.5 mg of p.o. Ativan as needed for anxiety. 5. DVT prophylaxis, low risk. Ambulate ad theodore. [id number] #: [id number] YANDEL
[2016-11-19] MEDS: Ibuprofen TAB* 600 MG PO SCH ×2 (02:50→10:51)
[2016-11-19 03:44] VITALS: BP 109/59
[2016-11-19] MEDS ORDERED: Omeprazole CAP* 20 MG PO SCH (06:00)
[2016-11-19] MEDS: Cephalexin CAP* 500 MG PO SCH (10:44)
--- NOTE | 2016-11-19 11:32 | DCNOTE ---
Patient seen this morning. Still feeling palpitations at times, occasionally associated with CP. Had EKG stress this AM, reports no chest pain during the procedure. Episodes of sinus tach on tele but no arrhythmias noted. Noted HR increasing into 120s as she was going down to stress test. Denies any new stressors. On exam, RRR, s1 and s2 present, no m/g/r, abd soft, NTND, BS+ Stress EKG normal aside from reaching target HR early. Trops negative. No significant abnormalities on echo. Will discharge home today with continued ibuprofen for 5 days. Has PCP f/u tomorrow. Will defer to Dr. Hale whether to start the patient on atenolol. Continue ABx for UTI. Can consider outpatient Cardiology consult, will give information for Dr. Carrillo.
--- NOTE | 2016-11-20 07:24 | DS ---
CC: Dr. Handley; Dr. Hale. DISCHARGE SUMMARY: DATE OF ADMISSION: 11/18/16 DATE OF DISCHARGE: 11/19/16 PRIMARY CARE PROVIDER: Dr. Handley. PRIMARY DISCHARGE DIAGNOSES: 1. Palpitations. 2. Sinus tachycardia. 3. Chest pain. DISCHARGE MEDICATION REGIMEN: 1. Keflex 500 mg by mouth 4 times daily. 2. Ibuprofen 600 mg by mouth 4 times daily. STUDIES DONE DURING HOSPITALIZATION: CTA of the chest. Impression: No pulmonary or arterial filli ng defect to suggest pulmonary embolism. Left lower extremity Doppler. Impression: No left lower extremity DVT. Transthoracic echocardiogram. Conclusion: Undetermined rhythm, normal sinus rhythm at times with p oor baseline limits interpretation, consider periods of Aflutter or AFib. Estimated ejection fracti on is 60% to 65%. No significant valve issues. No significant pericardial effusion. Gallbladder ultrasound. Impression: No evidence of cholelithiasis or biliary duct dilatation is no elle. EKG; stress test. The patient reached maximal heart rate sooner than anticipated with no ischemic c hanges. HISTORY OF PRESENT ILLNESS AND HOSPITAL SUMMARY: Please see the full history and physical by Dr. Candy Durán for full details. Briefly, Ms. Urbano is a 26-year- old female with a past medical hi story of pericarditis who presented to the hospital with symptoms of palpitations, chest pain, and o ccasional left arm and left leg pain. The patient had her troponins checked, which remained negativ e. EKG did not show any acute ischemic changes. TSH was within normal limits. She was monitored on telemetry and had some periods of sinus tachycardiac; however, no arrhythmias noted. She did have a mildly elevated bilirubin of 2.1, which prompted a right upper quadrant ultrasound which was marisa l. The patient complained of intermittent palpitations here in the hospital as well, although these wer e not necessarily associated with episodes of tachycardia. She underwent an EKG stress test, which showed that she was able to reach her target heart rate quickly; however, there were no ischemic josue nges noted during the test. As noted above, she also underwent a workup for DVT and PE with no abnor malities noted. It is felt that the patient may have pericarditis as she has had in the past, altho ugh this presentation seems a little different than previously. She was started on ibuprofen schedu le just in case her outpatient antibiotics were continued and she was diagnosed with UTI at Dr. Cruz's office. I do not feel like there is any benefit of keeping her in the hospital for further chuy ting. I would like to see how she does over the next few days on NSAIDs, and she will follow up barney Hale in the office tomorrow. Consideration could be given for possible cardiology consultat ion if this persists. TIME SPENT: Total time spent on this discharge 35 minutes. [facility] please see the full medical record for further details. [id number] #: [id number]
== END 2016-11-19 12:45 | disposition home or self-care (01) ==
LOC: ED 12:30 → MEDTELE 19:25
PROVIDERS: ADMIT Internal Medicine; ATTEND Hospitalist
DX: R00.2 Palpitations (principal); N39.0 Urinary tract infection, site not specified; R00.0 Tachycardia, unspecified; R07.9 Chest pain, unspecified; F41.9 Anxiety disorder, unspecified; R06.02 Shortness of breath
CPT/HCPCS: 36415; 71275; 76705; 80053; 81003; 82550; 82553; 83605; 83690; 83735; 83880; 84443; 84484; 84702; 85025; 85610; 85730; 86140; 93005; 93017; 93306; 96360; 96361; 99283; A9270-GY; G0378; Q9967

== ENCOUNTER 2018-02-04 07:42 | Emergency (ER) | payer OTHER ==
--- NOTE | 2018-02-04 08:24 | UC ---
Complaint Female HPI - HPI Summary HPI Summary: COMPLAINS OF ONE WEEK OF DYSURIA, URINARY FREQUENCY AND URGENCY. ONSET OF LEFT FLANK PAIN YESTERDAY. DENIES FEVER. HAS SOME NAUSEA BUT THIS IS BASELINE FOR HER DUE TO HISTORY OF GASTROPARESIS. - History Of Current Complaint Chief Complaint: UCGU Stated Complaint: URINARY COMPLAINT Time Seen by Provider: 02/04/18 07:57 Hx Obtained From: Patient Hx Last Menstrual Period: 01/28/18 Onset/Duration: Gradual Onset, Lasting Days, Still Present Timing: Constant Severity Initially: Moderate Severity Currently: Moderate Pain Intensity: 6 Pain Scale Used: 0-10 Numeric Character: Burning Aggravating Factor(s): Urination Alleviating Factor(s): Nothing Associated Signs And Symptoms: Positive: Back Pain, Nausea. Negative: Fever, Vomiting(# Of Episodes =) - Allergies/Home Medications Allergies/Adverse Reactions: Allergies Allergy/AdvReac Type Severity Reaction Status Date / Time No Known Allergies Allergy Verified 11/18/16 12:58 Home Medications: Home Medications Acetaminophen TAB* [Tylenol TAB*] 650 mg PO Q4H PRN 02/04/18 [History Confirmed 02/04/18] PMH/Surg Hx/FS Hx/Imm Hx Other GI/ History: GASTROPARESIS - Surgical History Surgical History: Yes Surgery Procedure, Year, and Place: APPENDECTOMY A CHILD - Family History Known Family History: Positive: Other - no FHX of DVT or clotting d/o Negative: Hypertension Family History: KIDNEY STONES - Social History Alcohol Use: None Substance Use Type: None Smoking Status (MU): Never Smoked Tobacco - Immunization History Most Recent Influenza Vaccination: never Most Recent Tetanus Shot: 2009 Review of Systems Constitutional: Negative Respiratory: Negative Cardiovascular: Negative Gastrointestinal: Abdominal Pain, Nausea Genitourinary: Dysuria, Frequency, Urgency All Other Systems Reviewed And Are Negative: Yes Physical Exam Triage Information Reviewed: Yes Appearance: Well-Appearing, No Pain Distress, Well-Nourished Vital Signs: Initial Vital Signs Temp 98.3 F 02/04/18 07:47 Pulse 113 02/04/18 07:47 Resp 16 02/04/18 07:47 BP 135/86 02/04/18 07:47 Pulse Ox 95 02/04/18 07:47 Laboratory Tests 02/04/18 02/04/18 08:05 08:09 POC Urine Color [place] POC Urine Clarity Turbid POC Urine pH 6.0 POC Ur Specif [place] >= 1.030 POC Urine Protein 3+ A POC Ur Glucose (UA) Negative POC Urine Ketones Negative POC Urine Blood 3+ A POC Urine Nitrite Positive A POC Urine Bilirubin Negative POC Urine Urobilinogen 1.0 POC U Leukocyte Esteras 2+ A POC Ur Test Negative Vital Signs Reviewed: Yes Eyes: Positive: Conjunctiva Clear ENT: Positive: Hearing grossly normal Neck: Positive: Supple Respiratory: Positive: No respiratory distress, No accessory muscle use Cardiovascular: Positive: Tachycardia Abdomen Description: Positive: Soft, CVA Tenderness (L), Other: - SUPRAPUBIC TENDERNESS. Negative: CVA Tenderness (R), Distended, Guarding Musculoskeletal: Positive: No Edema Neurological: Positive: Alert Psychological: Positive: Age Appropriate Behavior Skin: Negative: rashes Diagnostics - Radiology CT ABD/PELVIS W/O CONTRAST Xray Interpretation: Positive (See Comments) - Mild fullness of left renal collecting system with mild dilatation of the left ureter. Diffuse wall thickening of the urinary bladder with a small amount of free fluid noted. Possibility of urinary tract infection should BE considered. No obvious obstructing calculi is noted. Radiology Interpretation Completed By: Radiologist Complaint Female Dx - Differential Dx/Diagnosis Provider Diagnoses: UTI Discharge - Sign-Out/Discharge Documenting (check all that apply): Patient Departure All imaging exams completed and their final reports reviewed: Yes - Discharge Plan Condition: Stable Disposition: HOME Prescriptions: Phenazopyridine TAB* [Pyridium TAB*] 200 mg PO TID #6 tab Sulfamethox/Trimethoprim SUSP* [Bactrim Susp*] 20 ml PO BID #200 ml Patient Education Materials: Urinary Tract Infection in Women (ED) Referrals: Lubna Hale MD [Primary Care Provider] - If Needed Additional Instructions: CT SCAN TODAY DID NOT SHOW ANY KIDNEY STONES BUT DID SHOW SOME INFLAMMATION IN YOUR LEFT RENAL SYSTEM CONSISTENT WITH URINARY TRACT INFECTION. TAKE THE ANTIBIOTIC FOR THE FULL 5 DAYS AND BE SURE TO STAY WELL-HYDRATED. WE WILL SEND YOUR URINE FOR CULTURE AND CALL YOU IF YOUR MEDICATION NEEDS TO BE CHANGED. SEEK FOLLOW-UP IF YOU'RE NOT IMPROVING EXPECTED. - Billing Disposition and Condition Condition: STABLE Disposition: Home
--- NOTE | 2018-02-04 09:07 | RAD ---
Indication: Left flank pain. CT of the abdomen and pelvis was performed without oral or IV contrast administration. Coronal and sagittal reconstructed images were obtained. Lung bases demonstrate no pleural fluid, nodules or masses. Heart is of normal size without evidence of pericardial effusion. Liver is normal in size. No focal lesions or intrahepatic duct dilatation is noted. The spleen is normal in size. The pancreas demonstrates no mass or pancreatic duct dilatation. The gallbladder demonstrates no calcified gallstones, pericholecystic fluid or wall thickening. The pancreas demonstrates no mass or pancreatic ductal dictation. No adrenal masses are noted. The kidneys demonstrate fullness of left renal collecting system. No obvious calculi is noted although mild dilatation of the left ureter is noted. There is diffuse wall thickening of the urinary bladder. Aorta and inferior vena cava are unremarkable. No retroperitoneal lymphadenopathy is noted. The urinary bladder is partially collapsed with wall thickening. Urinary tract infection cannot be excluded. IMPRESSION: Mild fullness of left renal collecting system with mild dilatation of the left ureter. Diffuse wall thickening of the urinary bladder with a small amount of free fluid noted. Possibility of urinary tract infection should BE considered. No obvious obstructing calculi is noted.
[2018-02-04 09:49] VITALS: BP 123/78
== END 2018-02-04 10:06 | disposition home or self-care (01) ==
LOC: UCEAST 07:42
DX: N39.0 Urinary tract infection, site not specified (principal); R11.0 Nausea
CPT/HCPCS: 74176; 81003; 84702; 87077; 87086; 87186; 99212; G0463

== ENCOUNTER 2018-02-18 18:05 | Emergency (ER) | payer OTHER ==
--- NOTE | 2018-02-18 19:57 | RAD ---
EXAM: US Retroperitoneal Limited, Kidneys. EXAM DATE/TIME: 02/18/2018 7:22 PM CLINICAL HISTORY: 27 years old, female; Pain; Other: Left flank; Additional info: Left flank pain TECHNIQUE: Real-time ultrasound of the retroperitoneum with image documentation. Examination was focused on the kidneys. COMPARISON: GB US GALL BLADDER 11/18/2016 3:54 PM FINDINGS: Right kidney: Right kidney measures 11.3 x 4.3 x 4.2 cm. No mass, stones, or hydronephrosis. Left kidney: Left kidney measures 10.9 x 4.7 x 4.3 cm. No mass, stones, or hydronephrosis. IMPRESSION: Normal renal ultrasound. To contact [facility] with a general question: [facility] - [phone] For direct physician to physician contact: Physician Hotline - [phone] [facility] ([facility] Facility ID #[id number])
[2018-02-18] MEDS ORDERED: NS 0.9% 1000 ML* 1,000 ML IV ONE (19:58)
[2018-02-18 20:12] LABS: Urine Appearance Clear; Urine Blood 1+ (Negative); Urine Color Colorless; Urine Ketones 1+ (Negative); Urine Protein Negative (Negative); Urine Red Blood Cell Trace(0-2/hpf) (Absent); Urine Specific Gravity 1.003 (1.010-1.030); Urine Urobilinogen Negative (Negative); Urine White Blood Cell Absent (Absent)
[2018-02-18 20:13] LABS: ABS Basophils 0.1 10^3/ul (0-0.2); ABS Eosinophils 0 10^3/ul (0-0.6); ABS Lymphocytes 1.9 10^3/ul (1.0-4.8); ABS Monocytes 0.5 10^3/ul (0-0.8); ABS Neutrophils 9.6 10^3/ul (1.5-7.7); ABS Nucleated RBC 0 10^3/ul; Eosinophil % 0 % (0-6); Hematocrit 40 % (35-47); Hemoglobin 13.4 g/dl (12.0-16.0); Lymphocyte % 15.6 % (25-47); Mean Corpuscular HGB Conc 34 g/dl (31-36); Mean Corpuscular Hemoglobin 30 pg (27-31); Mean Corpuscular Volume 88 fL (80-97); Mean Platelet Volume 9.2 um3 (7.4-10.4); Nucleated Red Blood Cells % 0.1; Platelet Count 256 10^3/ul (150-450); Red Blood Count 4.53 10^6/ul (4.00-5.40); Red Cell Distribution Width 13 % (10.5-15)
--- NOTE | 2018-02-18 20:27 | ED ---
GI/ HPI - HPI Summary HPI Summary: 27-year-old female presents with left flank pain for the past couple days. She states that she was treated for UTI 3 weeks ago. She states that her symptoms seemed to resolve and then came back. She was treated with bacrtim. She admits to frequency. She denies any abnormal vaginal discharge. She admits to lower abdominal pain which is chronic. She admits to chronic nausea. She states that she got her previous uti due to having sex and has had sex since finishing the antibiotic. - History of Current Complaint Chief Complaint: EDFlankPain Time Seen by Provider: 02/18/18 19:57 Stated Complaint: LT FLANK PAIN/FEVER Hx Last Menstrual Period: 01/28/18 Pain Intensity: 6 - Allergy/Home Medications Allergies/Adverse Reactions: Allergies Allergy/AdvReac Type Severity Reaction Status Date / Time fentanyl Allergy Nausea And Verified 02/18/18 18:23 Vomiting PMH/Surg Hx/FS Hx/Imm Hx Endocrine/Hematology History: Denies: Hx Diabetes Cardiovascular History: Reports: Hx Angina - Hx of pericarditis 2012, Other Cardiovascular Problems/Disorders - hx pericarditis and intermittent angina since Denies: Hx Congestive Heart Failure, Hx Hypertension Respiratory History: Denies: Hx Asthma GI History: Reports: Other GI Disorders - Chronic constipation History: Reports: Other Problems/Disorders - UTIs Denies: Hx Renal Disease Sensory History: Denies: Hx Contacts or Glasses, Hx Hearing Aid Opthamlomology History: Denies: Hx Contacts or Glasses Psychiatric History: Reports: Hx Anxiety - Surgical History Surgery Procedure, Year, and Place: APPENDECTOMY A CHILD Infectious Disease History: No Infectious Disease History: Reports: History Other Infectious Disease - treated for lyme disease but never diagnosed Denies: Traveled Outside the [place] in Last 30 Days - Family History Known Family History: Positive: Other - no FHX of DVT or clotting d/o Negative: Hypertension Family History: KIDNEY STONES - Social History Alcohol Use: None Substance Use Type: Reports: None Smoking Status (MU): Never Smoked Tobacco Review of Systems Negative: Fever Negative: Chest Pain Negative: Shortness Of Breath Positive: Abdominal Pain Positive: flank pain All Other Systems Reviewed And Are Negative: Yes Physical Exam Triage Information Reviewed: Yes Vital Signs On Initial Exam: Initial Vitals Temp Pulse Resp BP Pulse Ox 98.7 F 126 16 141/87 100 02/18/18 18:18 10/12/18 18:18 02/18/18 18:18 02/18/18 18:18 02/18/18 18:18 Vital Signs Reviewed: Yes Appearance: Positive: Well-Appearing Skin: Positive: Warm, Dry Head/Face: Positive: Normal Head/Face Inspection Eyes: Positive: Normal, Conjunctiva Clear ENT: Positive: Pharynx normal Respiratory/Lung Sounds: Positive: Clear to Auscultation, Breath Sounds Present Cardiovascular: Positive: Normal, RRR Abdomen Description: Positive: Soft, Other: - tenderness right side abd. Negative: CVA Tenderness (R), CVA Tenderness (L) Musculoskeletal: Positive: Normal Neurological: Positive: Normal Psychiatric: Positive: Normal Diagnostics - Vital Signs Vital Signs Temp Pulse Resp BP Pulse Ox 02/18/18 20:13 110 126/98 100 02/18/18 20:08 108 100 02/18/18 18:18 98.7 F 126 16 141/87 100 - Laboratory Lab Results: Lab Results 02/18/18 02/18/18 Range/Units 19:56 20:05 WBC 12.0 H (3.5-10.8) 10^3/ul RBC 4.53 (4.00-5.40) 10^6/ul Hgb 13.4 (12.0-16.0) g/dl Hct 40 (35-47) % MCV 88 (80-97) fL MCH 30 (27-31) pg MCHC 34 (31-36) g/dl RDW 13 (10.5-15) % Plt Count 256 (150-450) 10^3/ul MPV 9.2 (7.4-10.4) um3 Neut % (Auto) 79.8 (38-83) % Lymph % (Auto) 15.6 L (25-47) % Webb % (Auto) 4.1 (0-7) % Eos % (Auto) 0 (0-6) % Baso % (Auto) 0.5 (0-2) % Absolute Neuts (auto) 9.6 H (1.5-7.7) 10^3/ul Absolute Lymphs (auto) 1.9 (1.0-4.8) 10^3/ul Absolute Monos (auto) 0.5 (0-0.8) 10^3/ul Absolute Eos (auto) 0 (0-0.6) 10^3/ul Absolute Basos (auto) 0.1 (0-0.2) 10^3/ul Absolute Nucleated RBC 0 10^3/ul Nucleated RBC % 0.1 Urine Color Colorless Urine Appearance Clear Urine pH 5.0 (5-9) Ur Specific [place] 1.003 L (1.010-1.030) Urine Protein Negative (Negative) Urine Ketones 1+ A (Negative) Urine Blood 1+ A (Negative) Urine Nitrate Negative (Negative) Urine Bilirubin Negative (Negative) Urine Urobilinogen Negative (Negative) Ur Leukocyte Esterase Negative (Negative) Urine WBC (Auto) Absent (Absent) Urine RBC (Auto) Trace(0-2/hpf) (Absent) Ur Squamous Epith Cells Present A (Absent) Urine Bacteria 1+ A (Absent) Urine Glucose Negative (Negative) Monoscreen Pending Result Diagrams: 02/18/18 20:05 02/18/18 20:05 Lab Statement: Any lab studies that have been ordered have been reviewed, and results considered in the medical decision making process. GIGU Course/Dx - Course Course Of Treatment: 27-year-old female presents with left flank pain for the past couple days. She states that she was treated for UTI 3 weeks ago. She states that her symptoms seemed to resolve and then came back. She was treated with bacrtim. She admits to frequency. She denies any abnormal vaginal discharge. She admits to lower abdominal pain which is chronic. She admits to chronic nausea. She states that she got her previous uti due to having sex and has had sex since finishing the antibiotic. On exam negative CVA tenderness. Tenderness on lateral aspect left side of abdomen. Urine shows UTI. wbc 12. gave dose of rocephin. monospot negative. discussed with treat as uti at this point although pain was not completely over kidney area. u/s normal. will place on keflex as patient likely liquid meds. patient will follow up with primary. patient understand and agrees with plan. - Diagnoses Differential Diagnoses - Female: Gastritis, Urinary Tract Infection, Other - mono Provider Diagnoses: UTI (urinary tract infection) Discharge - Sign-Out/Discharge Documenting (check all that apply): Patient Departure - Discharge Plan Condition: Good Disposition: HOME Prescriptions: Cephalexin SUSP* [Keflex SUSP 250 MG/5 ML*] 500 mg PO BID #1 oral.susp Patient Education Materials: Urinary Tract Infection in Women (ED) Referrals: Lubna Hale MD [Primary Care Provider] - Additional Instructions: take keflex 10ml twice a day for 7 days Take tyenlol every 6 hours for pain Follow up with primary within 5 days Return to ED if develop any new or worsening symptoms - Billing Disposition and Condition Condition: GOOD Disposition: Home
[2018-02-18 21:16] LABS: EGFR Non-African American 169.8 (>60)
[2018-02-18] MEDS ORDERED: cefTRIAXone(*) 1 GM in NS 0.9% 50 ML* 50 ML IVPB ONE (21:22)
[2018-02-18 22:25] VITALS: BP 137/91
== END 2018-02-18 22:25 | disposition home or self-care (01) ==
LOC: ED 18:05
DX: N39.0 Urinary tract infection, site not specified (principal); Z87.440 Personal history of urinary (tract) infections; R11.0 Nausea; Z88.5 Allergy status to narcotic agent
CPT/HCPCS: 36415; 76775; 80053; 81003; 81015; 83605; 83690; 85025; 86140; 86308; 87086; 96365; 99283; J0696